=== PATIENT | male | born 1990 | race Hispanic/Latino ===

== ENCOUNTER 2023-12-17 04:25 | Inpatient (IN) | payer OTHER ==
[~2023-12-17] VITALS: Ht 167.6 cm; Wt 79.2 kg
[2023-12-17] VITALS (12 sets, daily range): BP systolic 120–136; BP diastolic 82–89; PULSE 69–94; RESP 18–22; TEMP 98–98.7; O2SAT 93–98
[2023-12-17] MEDS: LACTATED RINGER'S 1,000 ML IV ONE (04:45)
[2023-12-17] MEDS: ALBUTEROL/IPRATROPIUM 3 ML NEB NEB ONE (05:09)
[2023-12-17] MEDS ORDERED: METHYLPREDNISOLONE SOD SUCC 125 MG/2ML VIAL ONE (05:10)
[2023-12-17] MEDS ORDERED: ALBUTEROL/IPRATROPIUM 3 ML NEB ONE (05:10)
[2023-12-17] MEDS: METHYLPREDNISOLONE SOD SUCC 40 MG/ML VIAL 1ML IV ONE (05:11)
[2023-12-17] MEDS ORDERED: POTASSIUM CHLORIDE 20 MEQ TAB CR PO ONE (05:28)
[2023-12-17] MEDS ORDERED: SODIUM CHLORIDE 0.9% 0 ML ONE (05:29)
[2023-12-17] MEDS ORDERED: LACTATED RINGER'S 1,000 ML ONE ×2 (05:29→06:49)
[2023-12-17] MEDS ORDERED: CEFTRIAXONE 1 GM VIAL ONE (05:29)
[2023-12-17] MEDS ORDERED: IOPAMIDOL 370 MG/ML 100 ML INFUS..BTL INJ ONE (05:36)
[2023-12-17] MEDS ORDERED: SODIUM CHLORIDE 0.9% 100 ML ONE (05:36)
[2023-12-17] MEDS: POTASSIUM CHLORIDE 20 MEQ TAB CR PO STA (05:58)
[2023-12-17] MEDS: ASPIRIN 81 MG CHEW TAB PO ONE (06:04)
[2023-12-17] MEDS ORDERED: SODIUM CHLORIDE 0.9% 250ML 250 ML ONE (06:05)
[2023-12-17] MEDS ORDERED: Azithromycin IV 500 MG 10 ML VIAL ONE (06:05)
[2023-12-17] MEDS ORDERED: ASPIRIN 81 MG CHEW TAB ONE (06:08)
[2023-12-17] MEDS: LACTATED RINGER'S 1,000 ML INJ SCH (06:49)
[2023-12-17 08:14] LABS: CREATINE KINASE 28 IU/L (30-200)
[2023-12-17 08:20] LABS: TROPONIN I < 0.001 ng/mL (0-0.300)
[2023-12-17] MEDS ORDERED: METOPROLOL TARTRATE INJ 1 MG/ML VIAL IV PRN (09:00)
[2023-12-17] MEDS: ALBUTEROL SULF 0.083% NEB SOLN 3 ML NEB NEB SCH (09:00)
[2023-12-17] MEDS ORDERED: ONDANSETRON HCL INJ 2MG/ML 2ML 2 MG/ML VIAL IV PRN (09:00)
[2023-12-17] MEDS: DOCUSATE SODIUM 100 MG CAP PO SCH (09:22)
[2023-12-17] MEDS: IPRATROPIUM BROMIDE 0.02% 2.5 ML NEB NEB SCH (09:55)
[2023-12-17] MEDS: IPRATROPIUM BROMIDE 0.02% 2.5 ML NEB NEB PRN (12:45)
[2023-12-17] MEDS ORDERED: [UNRECOGNIZED DRUG - OTHER] (14:48)
[2023-12-17] MEDS ORDERED: CLARITIN10 MG PO (14:48)
[2023-12-17 15:16] LABS: CREATINE KINASE 26 IU/L (30-200)
[2023-12-17 15:24] LABS: TROPONIN I < 0.001 ng/mL (0-0.300)
[2023-12-17] MEDS: FAMOTIDINE 20 MG TAB PO SCH (17:55)
[2023-12-18] VITALS (13 sets, daily range): BP systolic 113–136; BP diastolic 72–88; PULSE 76–105; RESP 18–24; TEMP 98–100.3; O2SAT 84–100
[2023-12-18 00:37] LABS: CREATINE KINASE 24 IU/L (30-200)
[2023-12-18 01:02] LABS: TROPONIN I < 0.001 ng/mL (0-0.300)
[2023-12-18] MEDS ORDERED: ATIVAN1 MG PO (01:19)
[2023-12-18] MEDS ORDERED: ESCITALOPRAM OX10 MG PO (01:19)
[2023-12-18] MEDS ORDERED: ESCITALOPRAM OXALATE 10 MG TAB PO PRN (01:30)
[2023-12-18] MEDS: LORAZEPAM 1 MG TAB PO PRN (01:51)
[2023-12-18 05:42] LABS: BASOPHILS % 0.4 % (0.0-1.0); EOSINOPHILS % 0.3 % (0.0-6.0); HEMATOCRIT 35.2 % (38.2-49.6); HEMOGLOBIN 12.4 g/dL (14.0-18.0); LYMPHOCYTES # (AUTO) 0.9 (1.0-3.2); LYMPHOCYTES % 11.5 % (18.0-39.1); MEAN CORPUSCULAR HEMOGLOBIN 31.6 pg (28-32); MEAN CORPUSCULAR HGB CONC 35.2 g/dL (31-35); MEAN CORPUSCULAR VOLUME 89.8 fL (81-99); MONOCYTES # (AUTO) 0.6 (0.2-0.8); MONOCYTES % 7.5 % (4.4-11.3); NEUTROPHILS # (AUTO) 6.2 (2.1-6.9); NEUTROPHILS % 79.9 % (38.7-80.0); PLATELET COUNT 194 x10e3/uL (140-360); RED BLOOD COUNT 3.92 x10e6/uL (4.3-5.7); RED CELL DISTRIBUTION WIDTH 14.1 % (11.7-14.4); WHITE BLOOD COUNT 7.76 x10e3/uL (4.8-10.8)
[2023-12-18 06:11] LABS: ALBUMIN 3.2 g/dL (3.5-5.0); ALBUMIN/GLOBULIN RATIO 0.8 (0.8-2.0); ANION GAP 15.6 mmol/L (8-16); BILIRUBIN,TOTAL 0.6 mg/dL (0.2-1.2); CALCIUM 8.5 mg/dL (8.4-10.2); CHOL/HDL RATIO 4.3 (3.9-4.7); CREATININE, SERUM 0.74 mg/dL (0.72-1.25); MAGNESIUM 2.1 MG/DL (1.3-2.1); PHOSPHORUS 3.4 MG/DL (2.3-4.7); POTASSIUM 3.6 mmol/L (3.5-5.1); TOTAL PROTEIN 7.2 g/dL (6.5-8.1)
[2023-12-18 06:41] LABS: FREE T4 (FREE THYROXINE) 0.94 ng/dL (0.8-1.8); THYROID STIMULATING HORMONE 2.44 uIU/mL (0.350-4.940)
[2023-12-18] MEDS ORDERED: ONDANSETRON HCL 4 MG ORAL DISINTEGRATING TAB PO PRN (14:15)
[2023-12-18] MEDS: ACETAMINOPHEN 325 MG TAB PO PRN (20:50)
[2023-12-19] VITALS (33 sets, daily range): BP systolic 118–144; BP diastolic 77–93; PULSE 84–113; RESP 18–45; TEMP 98.6–100.2; O2SAT 89–100
[2023-12-19 09:23] LABS: BASOPHILS % 0.4 % (0.0-1.0); EOSINOPHILS # (AUTO) 0.1 (0.0-0.4); HEMATOCRIT 35.8 % (38.2-49.6); HEMOGLOBIN 12.5 g/dL (14.0-18.0); LYMPHOCYTES # (AUTO) 0.8 (1.0-3.2); LYMPHOCYTES % 11.7 % (18.0-39.1); MEAN CORPUSCULAR HEMOGLOBIN 31.4 pg (28-32); MEAN CORPUSCULAR HGB CONC 34.9 g/dL (31-35); MEAN CORPUSCULAR VOLUME 89.9 fL (81-99); MONOCYTES # (AUTO) 0.6 (0.2-0.8); MONOCYTES % 8.2 % (4.4-11.3); NEUTROPHILS # (AUTO) 5.4 (2.1-6.9); NEUTROPHILS % 77.4 % (38.7-80.0); PLATELET COUNT 206 x10e3/uL (140-360); RED BLOOD COUNT 3.98 x10e6/uL (4.3-5.7); WHITE BLOOD COUNT 6.99 x10e3/uL (4.8-10.8)
[2023-12-19 10:01] LABS: ALBUMIN 3.1 g/dL (3.5-5.0); ALBUMIN/GLOBULIN RATIO 0.7 (0.8-2.0); ANION GAP 15.6 mmol/L (8-16); CALCIUM 8.9 mg/dL (8.4-10.2); CREATININE, SERUM 0.73 mg/dL (0.72-1.25); POTASSIUM 3.6 mmol/L (3.5-5.1); TOTAL PROTEIN 7.5 g/dL (6.5-8.1)
[2023-12-19 10:26] LABS: HIV 1&2 AB SCREEN ***REACTIVE*** (NONREACTIVE)
[2023-12-19] MEDS: POTASSIUM CHLORIDE 10MEQ EA PO ONE (13:08)
[2023-12-19] MEDS: PREDNISONE 20 MG TAB PO SCH (17:11)
[2023-12-19] MEDS: SULFAMETHOXAZOLE IV SCH (18:34)
[2023-12-19] MEDS: TRIMETHOPRIM IV SCH (18:34)
[2023-12-19] MEDS: DEXTROSE 5% IV SCH (18:34)
[2023-12-20] VITALS (25 sets, daily range): BP systolic 96–123; BP diastolic 60–79; PULSE 69–90; RESP 22–35; TEMP 98.4–99.8; O2SAT 94–100
[2023-12-20] MEDS: LORAZEPAM 1 MG TAB PO PRN (01:34)
[2023-12-20 06:17] LABS: RAPID PLASMA REAGIN Non Reactive (Non Reactive)
[2023-12-20 12:30] LABS: HEPATITIS B SURFACE AG (P) NON REACTIVE; HEPATITIS C ANTIBODY NONREACTIVE
[2023-12-20] MEDS: MUPIROCIN 2% OINT 22 GM TUBE TOP SCH (15:06)
[2023-12-20 16:11] LABS: % CD 4 POSITIVE LYMPHOCYTES 5.9 % (30.8-58.5); BASOPHILS % 0 % (Not Estab.); CD4 HELPER ABSOLUTE COUNT 35 /uL (359-1519); EOSINOPHILS, ABSOLUTE 0.1 x10E3/uL (0.0-0.4); HEMATOCRIT 36.3 % (37.5-51.0); HEMOGLOBIN 12.2 g/dL (13.0-17.7); LYMPHOCYTES % 8 % (Not Estab.); LYMPHOCYTES, ABSOLUTE 0.6 x10E3/uL (0.7-3.1); MCHC 33.6 g/dL (31.5-35.7); MCV 91 fL (79-97); PLATELETS 226 x10E3/uL (150-450); RBC 3.99 x10E6/uL (4.14-5.80); RDW 13.5 % (11.6-15.4)
[2023-12-21] VITALS (28 sets, daily range): BP systolic 103–152; BP diastolic 64–92; PULSE 68–100; RESP 21–38; TEMP 97.5–98.5; O2SAT 90–100
[2023-12-21] MEDS: TRIMETHOPRIM IV SCH (13:30)
[2023-12-21] MEDS: DEXTROSE 5% IV SCH (13:30)
[2023-12-21] MEDS: SULFAMETHOXAZOLE IV SCH (13:30)
[2023-12-21] MEDS: ONDANSETRON HCL INJ 2MG/ML 2ML 2 MG/ML VIAL IV ONE (15:12)
[2023-12-21] MEDS: POLYETHYLENE GLYCOL 3350 17 GM PACK PO PRN (18:01)
[2023-12-21] MEDS ORDERED: LIDOCAINE 4% PATCH TP PRN (19:45)
[2023-12-21] MEDS: LIDOCAINE 4% PATCH TP ONE (20:39)
[2023-12-22] VITALS (23 sets, daily range): BP systolic 113–125; BP diastolic 76–86; PULSE 69–93; RESP 21–26; TEMP 97.6–98.4; O2SAT 82–99
[2023-12-22] MEDS: ONDANSETRON HCL INJ 2MG/ML 2ML 2 MG/ML VIAL IV PRN (09:17)
[2023-12-22] MEDS: FLUCONAZOLE 200 MG/100 ML 100 ML IV SCH (09:46)
[2023-12-23] VITALS (29 sets, daily range): BP systolic 116–132; BP diastolic 73–96; PULSE 65–99; RESP 17–29; TEMP 97.9–98.6; O2SAT 61–99
[2023-12-24] VITALS (59 sets, daily range): BP systolic 118–132; BP diastolic 73–99; PULSE 75–109; RESP 19–33; TEMP 97.6–98.5; O2SAT 92–100
[2023-12-24 06:27] LABS: BASOPHILS % 0.1 % (0.0-1.0); EOSINOPHILS % 0.1 % (0.0-6.0); HEMATOCRIT 36.9 % (38.2-49.6); HEMOGLOBIN 13.4 g/dL (14.0-18.0); LYMPHOCYTES # (AUTO) 0.5 (1.0-3.2); LYMPHOCYTES % 5.2 % (18.0-39.1); MEAN CORPUSCULAR HEMOGLOBIN 31.2 pg (28-32); MEAN CORPUSCULAR HGB CONC 36.3 g/dL (31-35); MONOCYTES # (AUTO) 0.3 (0.2-0.8); MONOCYTES % 3.3 % (4.4-11.3); NEUTROPHILS # (AUTO) 7.9 (2.1-6.9); NEUTROPHILS % 90.2 % (38.7-80.0); PLATELET COUNT 298 x10e3/uL (140-360); RED BLOOD COUNT 4.29 x10e6/uL (4.3-5.7); RED CELL DISTRIBUTION WIDTH 13.1 % (11.7-14.4); WHITE BLOOD COUNT 8.79 x10e3/uL (4.8-10.8)
[2023-12-24] MEDS ORDERED: POLYETHYLENE GLYCOL 3350 17 GM PACK PO PRN (06:45)
[2023-12-24 07:06] LABS: ANION GAP 16.4 mmol/L (8-16); CALCIUM 8.9 mg/dL (8.4-10.2); CREATININE, SERUM 0.79 mg/dL (0.72-1.25); MAGNESIUM 2.5 MG/DL (1.3-2.1); PHOSPHORUS 3.1 MG/DL (2.3-4.7); POTASSIUM 4.4 mmol/L (3.5-5.1)
[2023-12-24] MEDS: DOCUSATE SODIUM 100 MG CAP PO SCH (08:07)
[2023-12-25] VITALS (30 sets, daily range): BP systolic 108–128; BP diastolic 76–98; PULSE 79–117; RESP 18–29; TEMP 97.6–98.5; O2SAT 94–100
[2023-12-25] MEDS: PREDNISONE 20 MG TAB PO SCH (08:53)
[2023-12-26] VITALS (15 sets, daily range): BP systolic 124–147; BP diastolic 36–91; PULSE 82–110; RESP 18–21; TEMP 97.6–98.2; O2SAT 93–100
[2023-12-26 06:44] LABS: ANION GAP 15.8 mmol/L (8-16); CALCIUM 9.1 mg/dL (8.4-10.2); CREATININE, SERUM 0.74 mg/dL (0.72-1.25); POTASSIUM 3.8 mmol/L (3.5-5.1)
[2023-12-27] VITALS (7 sets, daily range): BP systolic 132–144; BP diastolic 91–103; PULSE 79–122; RESP 16–18; TEMP 97.9–98; O2SAT 93–99
[2023-12-27 06:27] LABS: BASOPHILS % 0.5 % (0.0-1.0); EOSINOPHILS # (AUTO) 0.2 (0.0-0.4); EOSINOPHILS % 2.8 % (0.0-6.0); HEMATOCRIT 38.1 % (38.2-49.6); HEMOGLOBIN 13.5 g/dL (14.0-18.0); LYMPHOCYTES # (AUTO) 0.8 (1.0-3.2); MEAN CORPUSCULAR HEMOGLOBIN 31.3 pg (28-32); MEAN CORPUSCULAR HGB CONC 35.4 g/dL (31-35); MEAN CORPUSCULAR VOLUME 88.4 fL (81-99); MONOCYTES # (AUTO) 0.6 (0.2-0.8); MONOCYTES % 9.1 % (4.4-11.3); NEUTROPHILS # (AUTO) 4.8 (2.1-6.9); NEUTROPHILS % 74.4 % (38.7-80.0); PLATELET COUNT 212 x10e3/uL (140-360); RED BLOOD COUNT 4.31 x10e6/uL (4.3-5.7); RED CELL DISTRIBUTION WIDTH 13.6 % (11.7-14.4); WHITE BLOOD COUNT 6.49 x10e3/uL (4.8-10.8)
[2023-12-27 07:22] LABS: ANION GAP 17.9 mmol/L (8-16); CALCIUM 9.1 mg/dL (8.4-10.2); CREATININE, SERUM 0.76 mg/dL (0.72-1.25); POTASSIUM 3.9 mmol/L (3.5-5.1)
[2023-12-27] MEDS ORDERED: LEXAPRO10 MG PO (08:57)
[2023-12-27] MEDS: TRIMETHOPRIM/SULFAMETHOXAZOLE 160-800 MG TAB PO SCH (13:50)
[2023-12-28] VITALS (8 sets, daily range): BP systolic 103–143; BP diastolic 64–97; PULSE 90–115; RESP 16–20; TEMP 98–98.5; O2SAT 93–97
[2023-12-28] MEDS: PREDNISONE 20 MG TAB PO SCH (08:26)
[2023-12-28] MEDS ORDERED: ONDANSETRON HCL 4 MG ORAL DISINTEGRATING TAB PO PRN (12:30)
[2023-12-28] MEDS: LEVALBUTEROL HCL SOLN NEBU 0.63 MG/3 ML NEB INH SCH (12:52)
[2023-12-28] MEDS: IPRATROPIUM BROMIDE 0.02% 2.5 ML NEB NEB SCH (12:52)
[2023-12-28] MEDS ORDERED: IPRATROPIUM BROMIDE 17 MCG ACTUATION INHALER INH SCH (13:00)
[2023-12-28] MEDS ORDERED: ACETAMINOPHEN325 M1 PO (13:35)
[2023-12-28] MEDS ORDERED: LIDOCAINE PAIN1 EACH TOP (13:35)
[2023-12-28] MEDS ORDERED: BACTRIM DS TAB1 EACH PO (13:35)
[2023-12-28] MEDS ORDERED: PREDNISONE20 MG PO (13:35)
[2023-12-28] MEDS ORDERED: IPRATROPIU0.2 MG/1 M NEB (13:35)
[2023-12-28] MEDS ORDERED: Xopenex INH (13:35)
[2023-12-28] MEDS ORDERED: BIKTARVY 30-121 EACH PO (13:35)
[2023-12-28] MEDS ORDERED: ONDANSETRON ODT4 MG PO (13:35)
[2023-12-28] MEDS ORDERED: MIRALAX17 GM PO (13:35)
[2023-12-30] MEDS ORDERED: PREDNISONE 20 MG TAB PO SCH (09:00)
== END 2023-12-28 15:00 | disposition home or self-care (01) | DRG 974 ==
LOC: FSED 04:39 → ERHOLD 05:32 → MED/SURG 07:41 → OBSVTOIN 20:04 → ICU 12-19 10:11 → MED/SURG3 12-25 20:12
PROVIDERS: ADMIT Internal Medicine; ATTEND Internal Medicine
PROC: 5A0955A Assistance with Respiratory Ventilation, Greater than 96 Consecutive Hours, High Flow/Velocity Cannula (ICD-10-PCS; 2023-12-19)
PROC: 02HV33Z Insertion of Infusion Device into Superior Vena Cava, Percutaneous Approach (ICD-10-PCS; principal; 2023-12-21)
DX: B20 Human immunodeficiency virus [HIV] disease (principal); J96.01 Acute respiratory failure with hypoxia; B59 Pneumocystosis; J90 Pleural effusion, not elsewhere classified; E87.1 Hypo-osmolality and hyponatremia; B37.0 Candidal stomatitis; I27.20 Pulmonary hypertension, unspecified; E83.41 Hypermagnesemia; E87.6 Hypokalemia; I51.7 Cardiomegaly; R00.0 Tachycardia, unspecified; F41.9 Anxiety disorder, unspecified; E66.9 Obesity, unspecified; Z68.29 Body mass index [BMI] 29.0-29.9, adult; Z87.891 Personal history of nicotine dependence
CPT/HCPCS: 36415; 36569; 71045; 71046; 71260; 80048; 80053; 80061; 81003; 82550; 82553; 83036; 83605; 83735; 83880; 84100; 84439; 84443; 84484; 85025; 85379; 86361; 86480; 86592; 86689; 87040; 87390; 87449; 87535; 93005; 93306; 94640; 94799; 99252; 99284; G0433; G0435; J0696; J1450; J2405; J2919; J7050; J7060; J7512; Q9967